=== PATIENT | female | born 1985 | race Caucasian/White ===

== ENCOUNTER 2016-11-16 11:04 | Inpatient (IN) | payer OTHER ==
[2016-11-16] MEDS ORDERED: SODIUM CHLORIDE 0.9% 1,000 ML IV ONE (14:49)
[2016-11-16 15:22] LABS: Appearance,Urine Clear (Clear); Bilirubin,Urine Negative (Negative); Glucose,Urine (UA) Negative (Negative); Ketones,Urine 2+ (Negative); Leukocyte Esterase,Urine Negative (Negative); Nitrite,Urine Negative (Negative); Protein,Urine Negative (Negative); Specific Gravity,Urine 1.005 (1.001-1.035); UA Billing (MACRO vs. MICRO) CHEM; Urobilinogen,Urine <2.0 mg/dL (<2.0)
[2016-11-16] MEDS: ONDANSETRON 4 MG/2 ML VIAL IVP PRN ×2 (15:37→22:23)
[2016-11-16] MEDS: DEXTROSE 5%-0.9% NACL 1,000 ML IV SCH (16:54)
--- NOTE | 2016-11-16 18:30 | US ---
EXAMINATION TYPE: US OB <= 14 wk fetus DATE OF EXAM: 11/16/2016 4:43 PM COMPARISON: NONE CLINICAL HISTORY: r/o molar r/o multiple . hyperemesis gravidarum EXAM PERFORMED: Transabdominal (TA) with couple of images TV for further determining of perry fe tus EXAM MEASUREMENTS: GESTATIONAL AGE / DATING Physician Established: (9 weeks/ 1 day) EDC: 06/20/2017 Dates by LMP: (9 weeks/1 day) EDC: 06/20/2017 Dates by First Scan: (today Dates by Current Scan for: (8 weeks/3 days) EDC: 06/25/2017 MATERNAL ANATOMY Uterus: 12.1 x 7.7 x 5.9cm Right Ovary: 2.7 x 2.5 x 1.5cm Left Ovary: 3.1 x 2.8 x 1.7cm Post CDS / Adnexa: wnl Presence of free fluid: no Presence of corpus luteal cyst: in left ovary Presence of subchorionic bleed: no GESTATION / SURVEY CRL: 1.9cm (8 weeks/3 days) Yolk Sac (normal less than 6mm): 0.3cm Heart Rate: 175 bpm Rhythm: Normal IUP: Viable IUP Date of LMP: 09/13/2016 Beta HcG (if available): [id number] per order in comment section TECHNOLOGIST IMPRESSION: Single, live, IUP, 8 weeks/3 days, EDC: 06/25/2017; HR 175bpm. IMPRESSION: Ultrasound gestational age is 8 weeks 3 days. There is no evidence of a complicating process.
[2016-11-16 18:51] LABS: Basophils # (A) 0.1 k/uL (0-0.2); Basophils % (A) 1 %; CH 30.2; CHCM 34.7; Eosinophils # (A) 0.1 k/uL (0-0.7); Eosinophils % (A) 1 %; HCT 36.3 % (34.0-46.0); HDW 3.05; HGB 12.4 gm/dL (11.4-16.0); Luc # (Auto) 0.08; Luc % (Auto) 1; Lymphocytes # (A) 1.8 k/uL (1.0-4.8); Lymphocytes % (A) 22 %; MCH 29.8 pg (25.0-35.0); MCHC 34.2 g/dL (31.0-37.0); MCV 87.3 fL (80.0-100.0); Mean Platelet Volume 7.4; Monocytes # (A) 0.2 k/uL (0-1.0); Monocytes % (A) 2 %; Neutrophils % (A) 73 %; RBC 4.16 m/uL (3.80-5.40); RDW 13.4 % (11.5-15.5); WBC 8.2 k/uL (3.8-10.6); WBC (Perox) 8.39
[2016-11-16] MEDS: diphenhydrAMINE 50 MG/ML 1 ML VIAL IVP PRN (19:15)
[2016-11-17] MEDS: DEXTROSE 5%-0.9% NACL 1,000 ML IV SCH ×6 (02:01→23:31)
[2016-11-17] MEDS: diphenhydrAMINE 50 MG/ML 1 ML VIAL IVP PRN ×4 (02:01→20:15)
[2016-11-17] MEDS: ONDANSETRON 4 MG/2 ML VIAL IVP PRN ×4 (05:03→23:30)
--- NOTE | 2016-11-17 08:14 | P.HPOB ---
History of Present Illness H&P Date: 11/17/16 Chief Complaint: 9 weeks intrauterine , intractable nausea and vomiting The patient is a 31-year-old 3 para [birth year]2002 who initially presented to [facility] approximately 36 hours ago with several days of intractable nausea and vomiting. She was admitted to the hospital for IV hydration and management of nausea. After approximately 12-24 hours, the patient continued to have significant nausea and was deemed inappropriate admission for [facility]. She was therefore transferred to this hospital as obstetrics is available and obstetrical ultrasound as well. She was admitted and underwent obstetric ultrasound which demonstrated a normal intrauterine at approximately 8-3/7 weeks by crown-rump length. There was no evidence of molar nor of multiple gestation. Of interest , the quantitative beta hCG at [facility] was well over 700,000. Upon admission to our hospital, she did have aggressive rehydration with a bolus of 1 L of fluid and continuous fluids at 125. She is receiving antibiotics on a regular basis but continues to have fairly significant nausea with no actual emesis. She is unable to take anything by mouth at this time. All other laboratory workup has been normal aside from significant ketones in the urine as would be expected with dehydration. Swab for influenza was negative at [facility]. Obstetrical history: 3 para 09/11/2002 with 1 term delivery and 135-36 week delivery of twins. Current statistics are listed above. She did have an early ultrasound through our office demonstrating intrauterine gestational sac with heart tones at 6 weeks. Ultrasound here confirmed the above findings with a single intrauterine in no apparent pathology. Laboratory workup for labs is pending at this time. Gynecologic history: Unremarkable with no history of any infections to include recent STDs. Review of Systems Review of systems is confined to history of present illness. Past Medical History Past Medical History: No Reported History History of Any Multi-Drug Resistant Organisms: None Reported Past Surgical History: Section, Cholecystectomy, Tonsillectomy Past Anesthesia/Blood Transfusion Reactions: No Reported Reaction Past Psychological History: Depression Additional Psychological History / Comment(s): was on Pristique for a few years , is not taking presently Smoking Status: Never smoker Past Alcohol Use History: None Reported Past Drug Use History: None Reported - Past Family History Mother Family Medical History: No Reported History Father Additional Family Medical History / Comment(s): heart problems but pt unsure what type Medications and Allergies Home Medications Medication Instructions Recorded Confirmed Type Pnv95/Ferrous Fumarate/FA 1 tab PO DAILY 11/16/16 11/16/16 History [ Vitamins Tablet] Allergies Allergy/AdvReac Type Severity Reaction Status Date / Time No Known Allergies Allergy Verified 11/16/16 15:17 Exam - Vital Signs Vital signs: Vital Signs Temp Pulse Pulse Resp BP BP Pulse Ox 11/17/16 07:55 102/63 11/17/16 07:15 98.3 F 69 18 98 11/17/16 02:00 98.8 F 62 18 90/47 97 11/16/16 19:06 98.1 F 58 L 21 89/66 100 11/16/16 15:00 97.2 F L 61 19 106/57 100 11/16/16 14:00 64 11/16/16 13:25 97.9 F 64 16 109/55 100 Intake and Output 11/16/16 11/17/16 11/17/16 22:59 06:59 14:59 Intake Total 120 Output Total 750 850 Balance -630 -850 Intake: Oral 120 Output: Urine 600 850 Emesis 150 Other: # Voids 1 In general, this is a well-developed, well-nourished white female in some discomfort with her nausea. Her heart has a regular rhythm and rate without murmur. Her lungs are clear to auscultation bilaterally in all langley. Her abdomen is nondistended, has normal active bowel sounds, is soft, nontender, and without any palpable masses, hepatosplenomegaly, or hernias. Her extremities are without any cyanosis, clubbing, or edema and are nontender to palpation bilaterally. Pelvic examination is deferred. Results Result Diagrams: 11/16/16 17:43 Abnormal Lab Results - Last 24 Hours (Table) 11/16/16 Range/Units 15:10 Urine Ketones 2+ H (Negative) Assessment and Plan (1) First trimester Status: Acute (2) Intractable nausea and vomiting Status: Acute Plan: The patient has been admitted for active management of the above problems. Normal intrauterine gestation has been established. I will redraw her beta hCG today as well as a complete metabolic panel, CBC, and thyroid studies. I will likely be in contact with maternal medicine for possible advice and consider GI consultation should we make no progress. She will continue to have aggressive rehydration at this time and antiemetics as necessary.
[2016-11-17] MEDS ORDERED: SODIUM CHLORIDE 0.9% 1,000 ML IV ONE (08:17)
[2016-11-17 09:44] LABS: CH 30.5; CHCM 35.5; HCT 32.3 % (34.0-46.0); HDW 3.05; HGB 11.5 gm/dL (11.4-16.0); MCH 30.7 pg (25.0-35.0); MCHC 35.7 g/dL (31.0-37.0); MCV 86.1 fL (80.0-100.0); Mean Platelet Volume 7.3; RBC 3.75 m/uL (3.80-5.40); RDW 13.4 % (11.5-15.5)
[2016-11-17 09:52] LABS: ALT 24 U/L (9-52); AST 13 U/L (14-36); Alkaline Phosphatase 30 U/L (38-126); Anion Gap 7 mmol/L; Blood Urea Nitrogen 2 mg/dL (7-17); Carbon Dioxide 22 mmol/L (22-30); Chloride 110 mmol/L (98-107); Glucose 79 mg/dL (74-99); Non-African American GFR(MDRD) >60 (>60 ml/min/1.73 sqM); Potassium 3.7 mmol/L (3.5-5.1); Sodium 139 mmol/L (137-145); Total Bilirubin 0.9 mg/dL (0.2-1.3); Total Protein 5.4 g/dL (6.3-8.2)
[2016-11-17 11:27] LABS: HCG,Quantitative Serum 77833.8 mIU/mL
[2016-11-18] MEDS: diphenhydrAMINE 50 MG/ML 1 ML VIAL IVP PRN ×4 (02:27→22:48)
[2016-11-18] MEDS: ONDANSETRON 4 MG/2 ML VIAL IVP PRN ×3 (06:33→20:01)
[2016-11-18] MEDS: DEXTROSE 5%-0.9% NACL 1,000 ML IV SCH ×3 (06:33→18:30)
[2016-11-18] MEDS ORDERED: ACETAMINOPHEN TAB 325 MG TAB PO PRN (08:56)
[2016-11-18] MEDS: ACETAMINOPHEN IV (For NPO) 1,000 MG in EMPTY BAG 1 BAG IVPB PRN ×2 (09:10→17:24)
--- NOTE | 2016-11-18 11:53 | P.PN ---
Subjective Principal diagnosis: 9+ weeks, dehydration, viral syndrome, nausea and vomiting The patient reports that she developed some vaginal bleeding this morning which has not increased and appears to have decreased somewhat. She is reporting some cramping. She still feels significantly nauseated and continues to have retching without production of vomitus. She has been unable to tolerate liquids. Objective - Vital Signs Vital signs: Vital Signs Temp 97.8 F 11/18/16 06:45 Pulse 68 11/18/16 06:45 Resp 16 11/18/16 06:45 BP 100/58 11/18/16 06:45 Pulse Ox 99 11/18/16 06:45 Intake & Output 11/17/16 11/18/16 11/18/16 18:59 06:59 18:59 Output Total 1875 1200 700 Balance -1875 -1200 -700 Weight 91.7 kg 91.8 kg Output: Urine 1775 1200 600 Emesis 100 100 Other: Voiding Method Toilet # Voids 1 # Bowel Movements 1 1 - Exam In general, this is a well-developed, well-nourished white female who appears ill and uncomfortable. Her abdomen is nondistended, soft, nontender, without any palpable masses, hepatosplenomegaly, or hernias. Her extremities are without any cyanosis, clubbing, or edema and are nontender to palpation bilaterally. - Labs CBC & Chem 7: 11/17/16 09:18 11/17/16 09:18 Assessment and Plan (1) First trimester Status: Acute (2) Intractable nausea and vomiting Status: Acute Plan: We will continue aggressive IV hydration. I will add Pepcid intravenously to decrease the possible gastritis from nausea and vomiting. I've discussed with her that our goal is to have her be able to tolerate liquids in order to be able to discharge her. Should she continue to have significant nausea and vomiting, there is a consideration for consultation with infectious disease. White count has been normal throughout her hospitalization. The bleeding at this time will be treated as threatened miscarriage. Should it continue, she may require repeat ultrasound for confirmation of viability.
[2016-11-18] MEDS: FAMOTIDINE 20 MG/2 ML VIAL IV SCH ×2 (13:18→21:23)
[2016-11-19] MEDS: DEXTROSE 5%-0.9% NACL 1,000 ML IV SCH ×2 (00:57→07:50)
[2016-11-19] MEDS: ONDANSETRON 4 MG/2 ML VIAL IVP PRN ×2 (03:43→09:40)
[2016-11-19] MEDS: ACETAMINOPHEN IV (For NPO) 1,000 MG in EMPTY BAG 1 BAG IVPB PRN (04:01)
[2016-11-19] MEDS: diphenhydrAMINE 50 MG/ML 1 ML VIAL IVP PRN (07:55)
[2016-11-19] MEDS: FAMOTIDINE 20 MG/2 ML VIAL IV SCH ×2 (09:02→21:54)
--- NOTE | 2016-11-19 11:51 | P.PN ---
Subjective Principal diagnosis: Vomiting and diarrhea first trimester , suspect fluid Patient complains of headache, 6 out of 10. Scant vaginal dark bleeding has resolved. Continued emesis, with diarrhea 10 times daily. Objective - Vital Signs Vital signs: Vital Signs Temp 97.8 F 11/19/16 08:22 Pulse 64 11/19/16 08:43 Resp 16 11/19/16 08:22 BP 117/77 11/19/16 08:43 Pulse Ox 100 11/19/16 08:22 Intake & Output 11/18/16 11/19/16 11/19/16 18:59 06:59 18:59 Output Total 1000 1350 730 Balance -1000 -1350 -730 Weight 91.8 kg Output: Urine 900 1350 730 Emesis 100 Other: Voiding Method Toilet Toilet Toilet # Voids 1 1 # Bowel Movements 1 1 # Emeses 1 - Constitutional General appearance: Present: average body habitus, cooperative, mild distress - EENT Eyes: Present: PERRLA ENT: Present: hearing grossly normal - Respiratory Respiratory: bilateral: CTA - Cardiovascular Rhythm: regular - Gastrointestinal General gastrointestinal: Present: normal bowel sounds - Integumentary Integumentary: Present: normal, normal turgor - Neurologic Neurologic: Present: CNII-XII intact - Musculoskeletal Musculoskeletal: Present: generalized weakness - Psychiatric Psychiatric: Present: A&O x's 3, appropriate affect, intact judgment & insight - Labs CBC & Chem 7: 11/17/16 09:18 11/17/16 09:18 Assessment and Plan Plan: Phenergan 75 mg IM. Will add multivitamin to the IV bag daily. Culture stool. Continue supportive care. Time with Patient: Less than 30
[2016-11-19] MEDS ORDERED: SODIUM CHLORIDE 0.9% 1,000 ML with POTASSIUM CHLORIDE 20 MEQ, MVI, ADULT NO.4 WITH VIT ... IV SCH ×5 (12:00)
[2016-11-19] MEDS: PROMETHAZINE INJ 25 MG/ML 1 ML VIAL IM PRN ×2 (13:48→21:37)
[2016-11-19] MEDS: 1: MVI, ADULT NO.4 WITH VIT K 10 ML, THIAMINE 100 MG, FOLIC ACID 1 MG in SODIUM CHLORIDE IV SCH ×2 (13:48→23:48)
[2016-11-20] MEDS: 1: MVI, ADULT NO.4 WITH VIT K 10 ML, THIAMINE 100 MG, FOLIC ACID 1 MG in SODIUM CHLORIDE IV SCH ×4 (08:04→22:59)
[2016-11-20] MEDS: PROMETHAZINE INJ 25 MG/ML 1 ML VIAL IM PRN (08:49)
--- NOTE | 2016-11-20 09:18 | P.PN ---
Subjective Patient complains of headache, 6 out of 10. Scant vaginal dark bleeding has resolved. Continued emesis, with diarrhea 10 times daily. Objective - Vital Signs Vital signs: Vital Signs Temp 98.1 F 11/20/16 07:00 Pulse 67 11/20/16 07:00 Resp 14 11/20/16 07:00 BP 104/56 11/20/16 07:00 Pulse Ox 100 11/19/16 21:26 Intake & Output 11/19/16 11/20/16 11/20/16 17:59 06:59 18:59 Intake Total Output Total Balance Intake: Intake, IV Titration Amount Mvi, Adult No.4 with Vit K 10 ml Thiamine 100 mg Folic Acid 1 mg In Sodium Chloride 0.9% 1,000 ml @ 100 mls/hr IV .BY DURATION [facility] Rx#: [id number] Oral Output: Urine Other: Voiding Method # Voids # Bowel Movements # Emeses - Exam Doppler heart tones at the bedside 155. - Constitutional General appearance: Present: average body habitus, cooperative - EENT Eyes: Present: PERRLA ENT: Present: hearing grossly normal - Neck Neck: Present: normal ROM Thyroid: bilateral: normal size - Respiratory Respiratory: bilateral: CTA - Cardiovascular Rhythm: regular - Gastrointestinal General gastrointestinal: Present: normal bowel sounds - Neurologic Neurologic: Present: CNII-XII intact - Musculoskeletal Musculoskeletal: Present: generalized weakness - Labs CBC & Chem 7: 11/17/16 09:18 11/17/16 09:18 Labs: Microbiology - Last 24 Hours (Table) 11/19/16 14:13 Stool Culture - Preliminary Stool Assessment and Plan Plan: Continue supportive care today. Advance to dry food diet. Patient may shower. Time with Patient: Less than 30
[2016-11-20] MEDS: FAMOTIDINE 20 MG/2 ML VIAL IV SCH ×2 (11:24→23:00)
[2016-11-20] MEDS: ONDANSETRON 4 MG/2 ML VIAL IVP PRN (20:56)
[2016-11-20] MEDS: ACETAMINOPHEN IV (For NPO) 1,000 MG in EMPTY BAG 1 BAG IVPB PRN (20:56)
[2016-11-21] MEDS: 1: MVI, ADULT NO.4 WITH VIT K 10 ML, THIAMINE 100 MG, FOLIC ACID 1 MG in SODIUM CHLORIDE IV SCH ×3 (06:33→18:05)
[2016-11-21] MEDS: PROMETHAZINE INJ 25 MG/ML 1 ML VIAL IM PRN (08:11)
[2016-11-21] MEDS: FAMOTIDINE 20 MG/2 ML VIAL IV SCH ×2 (08:36→20:53)
--- NOTE | 2016-11-21 08:53 | P.PN ---
Subjective Principal diagnosis: 9+ weeks, dehydration, viral syndrome, nausea and vomiting The patient continues to report significant nausea and vomiting. She reports that she feels significantly week. She is able to get up and use the restroom on her own. She has not tolerated liquids to this point. Objective - Vital Signs Vital signs: Vital Signs Temp 99.0 F 11/21/16 08:00 Pulse 98 11/21/16 08:00 Resp 18 11/21/16 08:00 BP 116/70 11/21/16 08:00 Pulse Ox 100 11/19/16 21:26 Intake & Output 11/20/16 11/21/16 11/21/16 18:59 06:59 18:59 Intake Total 2011.2 1100 Output Total 1100 1350 400 Balance 911.2 -250 -400 Intake: IV 1100 ACETAMINOPHEN IV (For NPO 100 ) 1,000 mg In Empty Bag 1 bag @ 400 mls/hr IVPB Q6HR PRN Rx#:[id number] Dextrose 5%-0.9% NaCl 1, 1000 000 ml @ 150 mls/hr IV . BY DURATION [facility] Rx#: [id number] Intake, IV Titration 2010.2 Amount Dextrose 5%-0.9% NaCl 1, 1000 000 ml @ 150 mls/hr IV . BY DURATION [facility] Rx#: [id number] Mvi, Adult No.4 with Vit 1011.2 K 10 ml Thiamine 100 mg Folic Acid 1 mg In Sodium Chloride 0.9% 1,000 ml @ 100 mls/hr IV .BY DURATION [facility] Rx#: [id number] Oral 0 Output: Urine 1100 1350 400 Stool 0 Other: # Voids 1 # Bowel Movements 1 1 - Exam In general, this is a well-developed, well-nourished white female remains in some discomfort secondary to her illness. Her heart has a regular rhythm and rate without murmur. Her lungs are clear to auscultation bilaterally in all langley. Her abdomen is nondistended, has normal active bowel sounds, is soft, nontender, and without any palpable masses. Her extremities without any cyanosis, clubbing, or edema and are nontender to palpation bilaterally. Pelvic examination is deferred - Labs CBC & Chem 7: 11/17/16 09:18 11/17/16 09:18 Assessment and Plan (1) First trimester Status: Acute (2) Intractable nausea and vomiting Status: Acute Plan: We will add daily weight. There is some consideration for attempting to add parenteral nutrition if she is unable to tolerate the orals within the next 24- 48 hours. Continue supportive care.
[2016-11-21] MEDS: ONDANSETRON 4 MG/2 ML VIAL IVP PRN ×2 (10:31→18:52)
[2016-11-21 14:48] LABS: Basophils % (A) 0 %; CH 30.4; CHCM 34.9; Eosinophils # (A) 0.1 k/uL (0-0.7); Eosinophils % (A) 2 %; HCT 34.7 % (34.0-46.0); HDW 3.11; HGB 11.9 gm/dL (11.4-16.0); Luc # (Auto) 0.13; Luc % (Auto) 2; Lymphocytes % (A) 32 %; MCH 30.2 pg (25.0-35.0); MCHC 34.4 g/dL (31.0-37.0); MCV 87.8 fL (80.0-100.0); Mean Platelet Volume 7.3; Monocytes # (A) 0.2 k/uL (0-1.0); Monocytes % (A) 3 %; Neutrophils # (A) 3.8 k/uL (1.3-7.7); Neutrophils % (A) 61 %; RBC 3.95 m/uL (3.80-5.40); RDW 13.8 % (11.5-15.5); WBC 6.2 k/uL (3.8-10.6); WBC (Perox) 6.24
[2016-11-21 14:57] LABS: ALT 37 U/L (9-52); AST 32 U/L (14-36); Alkaline Phosphatase 34 U/L (38-126); Amylase <30 U/L (30-110); Anion Gap 9 mmol/L; Blood Urea Nitrogen <2 mg/dL (7-17); Calcium 8.6 mg/dL (8.4-10.2); Carbon Dioxide 22 mmol/L (22-30); Chloride 107 mmol/L (98-107); Glucose 78 mg/dL (74-99); Non-African American GFR(MDRD) >60 (>60 ml/min/1.73 sqM); Potassium 3.5 mmol/L (3.5-5.1); Sodium 138 mmol/L (137-145); Total Bilirubin 1.2 mg/dL (0.2-1.3); Total Protein 5.9 g/dL (6.3-8.2)
[2016-11-21] MEDS: ACETAMINOPHEN IV (For NPO) 1,000 MG in EMPTY BAG 1 BAG IVPB PRN (18:17)
[2016-11-22] MEDS: 1: MVI, ADULT NO.4 WITH VIT K 10 ML, THIAMINE 100 MG, FOLIC ACID 1 MG in SODIUM CHLORIDE IV SCH ×3 (01:42→20:11)
[2016-11-22] MEDS: diphenhydrAMINE 50 MG/ML 1 ML VIAL IVP PRN ×3 (06:31→21:37)
[2016-11-22] MEDS: FAMOTIDINE 20 MG/2 ML VIAL IV SCH ×2 (09:23→21:38)
[2016-11-22 09:59] VITALS: BMI 34.2
--- NOTE | 2016-11-22 10:47 | P.PN ---
Subjective Principal diagnosis: 9+ weeks, dehydration, viral syndrome, nausea and vomiting The patient continues to be unable to tolerate anything by mouth. She does report feeling a little improvement from yesterday but continues to have both nausea and the reported diarrhea. The vaginal bleeding has the decreased to only dark blood when wiping at the toilet. Objective - Vital Signs Vital signs: Vital Signs Temp 97.6 F 11/22/16 07:40 Pulse 62 11/22/16 07:40 Resp 16 11/22/16 07:40 BP 102/59 11/22/16 07:40 Pulse Ox 98 11/22/16 00:00 Intake & Output 11/21/16 11/22/16 11/22/16 18:59 06:59 18:59 Intake Total 2011.2 600 Output Total 1600 600 800 Balance 411.2 0 -800 Weight 90.945 kg 90.378 kg Intake: Intake, IV Titration 2010.2 Amount Dextrose 5%-0.9% NaCl 1, 1000 000 ml @ 150 mls/hr IV . BY DURATION [facility] Rx#: [id number] Mvi, Adult No.4 with Vit 1011.2 K 10 ml Thiamine 100 mg Folic Acid 1 mg In Sodium Chloride 0.9% 1,000 ml @ 100 mls/hr IV .BY DURATION [facility] Rx#: [id number] Oral 600 Output: Urine 1600 600 800 Stool 0 Other: Voiding Method Toilet # Voids 1 1 1 # Bowel Movements 1 - Exam In general, this is a well-developed, mildly obese white female who appears ill though slightly improved from yesterday. Her heart has a regular rhythm and rate without murmur. Her lungs are clear to auscultation bilaterally in all langley. Her abdomen is nondistended, has normal bowel sounds is soft, nontender , and without palpable masses, hepatosplenomegaly, hernias. Her extremities are without any cyanosis, clubbing, or edema and are nontender to palpation bilaterally. Pelvic examination is deferred. - Labs CBC & Chem 7: 11/21/16 14:07 11/21/16 14:07 Labs: Abnormal Lab Results - Last 24 Hours (Table) 11/21/16 Range/Units 14:07 BUN <2 L (7-17) mg/dL Alkaline Phosphatase 34 L (38-126) U/L Total Protein 5.9 L (6.3-8.2) g/dL Albumin 3.2 L (3.5-5.0) g/dL Amylase <30 L (30-110) U/L Microbiology - Last 24 Hours (Table) 11/19/16 14:13 Stool Culture - Preliminary Stool Assessment and Plan (1) First trimester Status: Acute (2) Intractable nausea and vomiting Status: Acute Plan: At this point, I still suspect a superimposed viral illness over early nausea and vomiting. Culture for [place] virus was negative and she has not had antibiotics to make Clostridium difficile a more viable alternative. She has now been at least 1 week without any significant oral nutrition. Consideration will be made for options for peripheral feeding and nutrition. I have consulted gastroenterology for their opinions regarding the ongoing nausea and vomiting as well as diarrhea. Otherwise we will continue supportive care at this time and await for her ability to tolerate liquids. Nutrition consultation is a consideration but she is unable to take anything by mouth at this time. All laboratories were rechecked yesterday and were normal aside from the expected nutritional deficiencies.
[2016-11-22] MEDS: ONDANSETRON 4 MG/2 ML VIAL IVP PRN (17:01)
[2016-11-23] MEDS: 1: MVI, ADULT NO.4 WITH VIT K 10 ML, THIAMINE 100 MG, FOLIC ACID 1 MG in SODIUM CHLORIDE IV SCH ×3 (02:38→21:00)
--- NOTE | 2016-11-23 08:44 | P.PN ---
Subjective Principal diagnosis: 9+ weeks, dehydration, viral syndrome, nausea and vomiting The patient reports feeling somewhat better this morning. She still does have some nausea and this continues to report loose stools. She has not yet tolerated anything of significance by mouth and she was able to tolerate some sure bit and pretzels yesterday. Objective - Vital Signs Vital signs: Vital Signs Temp 98.8 F 11/23/16 07:37 Pulse 55 L 11/23/16 07:37 Resp 18 11/23/16 07:37 BP 89/55 11/23/16 07:37 Pulse Ox 99 11/22/16 23:48 Intake & Output 11/22/16 11/23/16 11/23/16 18:59 06:59 18:59 Intake Total 1000 900 Output Total 2400 500 500 Balance -1400 400 -500 Weight 90.378 kg Intake: IV 900 Dextrose 5%-0.9% NaCl 1, 900 000 ml @ 150 mls/hr IV . BY DURATION [facility] Rx#: [id number] Intake, IV Titration 1000 Amount Dextrose 5%-0.9% NaCl 1, 1000 000 ml @ 150 mls/hr IV . BY DURATION [facility] Rx#: [id number] Output: Urine 2300 500 500 Emesis 100 Other: # Voids 1 # Bowel Movements 1 1 - Exam In general, this is a well-developed well-nourished white female who continues to look somewhat ill though improved from yesterday. Her heart has regular rhythm and rate without murmur. Her lungs are clear to auscultation bilaterally in all langley. Her abdomen is nondistended, has normal active bowel sounds, soft, nontender, without any palpable masses. Her extremities are without any cyanosis, clubbing, or edema and nontender to palpation bilaterally. Pelvic examination is deferred. - Labs CBC & Chem 7: 11/21/16 14:07 11/21/16 14:07 Labs: Microbiology - Last 24 Hours (Table) 11/19/16 14:13 Stool Culture - Final Stool Assessment and Plan (1) First trimester Status: Acute (2) Intractable nausea and vomiting Status: Acute Plan: I have strongly encouraged the patient to try liquids today by mouth. GI consultation is pending at this time as is culture for C. diff. She cannot be discharged until she is able to at least tolerate oral liquids and is going to be in need of some actual nutrition in the very near future. Should her situation not improve, she may require parenteral nutritional options.
[2016-11-23] MEDS: FAMOTIDINE 20 MG/2 ML VIAL IV SCH ×2 (09:13→21:21)
--- NOTE | 2016-11-23 12:22 | P.CONS ---
History of Present Illness - Reason for Consult Consult date: 11/23/16 Nausea vomiting diarrhea Requesting physician: Roverto Gomez - History of Present Illness 31-year-old female patient of Dr. Gomez with a past medical history of depression and cholecystectomy. 9 weeks intrauterine admitted week ago with intractable nausea vomiting and diarrhea. Patient's symptoms of nausea vomiting started about 2 weeks ago then 4 days later developed several bouts of nonbloody diarrhea with intermittent lower abdominal cramping. Originally evaluated at [facility] one week ago transferred to [place] for further evaluation and care. She received aggressive rehydration with fluid boluses. Presently still reporting upwards to 10-15 small bowel movements daily. Oral intake is poor. Vomiting seems to improve but nausea is still persistent. No history of colitis, IBS, inflammatory bowel disease. No recent travels sick contacts or changes in diet, medications. White count 6.2. Hemoglobin 11.9. BUN less than 2. Creatinine 0.5. C. difficile norovirus negative. Colonoscopy several years ago she's unsure why it was performed but thinks the exam was normal. Review of Systems Constitutional: Denies fever, chills, sweats, weight gain, or loss. HEENT: Negative for migraines, blurred vision or loss, earaches, drainage, tinnitus, oral mucosal lesions, dysphagia, or odynophagia. CARDIAC: Negative for chest pain, arrhythmias, or palpitation. RESPIRATORY: Negative for shortness of breath, hemoptysis, cough, or sputum production. GI: See HPI for pertinent findings. : Negative for hematuria, urgency, frequency, polyuria, or dysuria. GYNc: 9 weeks intrauterine . MUSCULOSKELETAL: Negative for muscle aches, swelling, arthritis, and arthralgias. NEUROLOGIC: Negative for stroke or TIA. ENDOCRINE: Negative for thyroid problems. SKIN: Negative for rash or itching. PSYCHIATRIC: History of depression. All systems: negative (See HPI) Past Medical History Past Medical History: No Reported History History of Any Multi-Drug Resistant Organisms: None Reported Past Surgical History: Section, Cholecystectomy, Tonsillectomy Past Anesthesia/Blood Transfusion Reactions: No Reported Reaction Past Psychological History: Depression Additional Psychological History / Comment(s): was on Pristique for a few years , is not taking presently Smoking Status: Never smoker Past Alcohol Use History: None Reported Past Drug Use History: None Reported - Past Family History Mother Family Medical History: No Reported History Father Additional Family Medical History / Comment(s): heart problems but pt unsure what type Medications and Allergies Home Medications Medication Instructions Recorded Confirmed Type Pnv95/Ferrous Fumarate/FA 1 tab PO DAILY 11/16/16 11/16/16 History [ Vitamins Tablet] Allergies Allergy/AdvReac Type Severity Reaction Status Date / Time No Known Allergies Allergy Verified 11/16/16 15:17 Physical Exam Vitals: Vital Signs Temp Pulse Pulse Pulse Resp BP BP 11/23/16 07:37 98.8 F 55 L 18 89/55 11/22/16 23:48 98.5 F 54 L 16 101/55 11/22/16 15:15 98.7 F 61 98 16 109/48 Pulse Ox 11/23/16 07:37 11/22/16 23:48 99 11/22/16 15:15 Intake and Output 11/22/16 11/23/16 11/23/16 22:59 06:59 14:59 Intake Total 1000 900 Output Total 950 500 500 Balance 50 400 -500 Intake: IV 900 Dextrose 5%-0.9% NaCl 1, 900 000 ml @ 150 mls/hr IV . BY DURATION [facility] Rx#: [id number] Intake, IV Titration 1000 Amount Dextrose 5%-0.9% NaCl 1, 1000 000 ml @ 150 mls/hr IV . BY DURATION [facility] Rx#: [id number] Output: Urine 900 500 500 Emesis 50 Other: # Voids 1 # Bowel Movements 1 1 Weight 90.322 kg Patient Weight 11/24/16 06:59 Weight 90.322 kg General appearance: The patient is alert, oriented, in no acute distress. HET: Head is normocephalic and atraumatic. Pupils are equal and reactive. Oropharynx is clear without lesions. Neck: Supple without lymphadenopathy. Trachea midline. Heart: S1 S2. Regular rate and rhythm. Lungs: No crackles or wheezes are heard. Abdomen: Soft, very mild tenderness bilateral lower quadrants equal, nondistended with bowel sounds. No peritoneal signs. No palpable organomegaly or masses. Extremities: Normal skin color and turgor. No cyanosis, rash, ulceration, clubbing, or edema. Radial and pedal pulses are 2/4 bilaterally. Neurological: No focal deficits. Strength and sensation are grossly intact. Results CBC & Chem 7: 11/21/16 14:07 11/21/16 14:07 Labs: Microbiology - Last 24 Hours (Table) 11/19/16 14:13 Stool Culture - Final Stool Assessment and Plan (1) Acute diarrhea Narrative/Plan: Suspect gastroenteritis possible self-limiting infectious colitis possible inflammatory Status: Acute (2) Intractable nausea and vomiting Status: Acute (3) First trimester Status: Acute Plan: 1. Will order additional stool studies including stool culture, Giardia antigen , fecal leukocytes and Hemoccult. 2. Dr. Mosley we'll reevaluate and decide if the use of antidiarrheals, cholestyramine for diarrhea would be beneficial; these medications are risk factor C. 3. For now continue with Pepcid, Benadryl and Zofran as needed for symptomatic care. Patient and nursing staff were advised to monitor and record frequency of bowel movements for further review. 4. Will follow with you. Thank you for this kind referral and the opportunity to participate in the care of your patient. This consultation was discussed with Dr. Mosley. The impression and plan of care have been directed as dictated.
[2016-11-23] MEDS: ONDANSETRON 4 MG/2 ML VIAL IVP PRN (12:48)
[2016-11-23] MEDS: diphenhydrAMINE 50 MG/ML 1 ML VIAL IVP PRN (16:51)
--- NOTE | 2016-11-24 08:57 | P.PN ---
Subjective Principal diagnosis: 9+ weeks, dehydration, viral syndrome, nausea and vomiting The patient reports feeling significantly better this morning. She has been able to take some soup and the other intake by mouth. She denies any headache, pain, or any other specific physical concerns. Her nausea has been improved though she still does feel some nausea. She reports that she has had diarrhea but nursing staff as witnessed none over the last 12-24 hours. Objective - Vital Signs Vital signs: Vital Signs Temp 98.6 F 11/24/16 00:00 Pulse 81 11/24/16 00:00 Resp 15 11/24/16 00:00 BP 98/61 11/24/16 00:00 Pulse Ox 99 11/22/16 23:48 Intake & Output 11/23/16 11/24/16 11/24/16 18:59 06:59 18:59 Intake Total 2261.2 700 Output Total 1850 590 Balance 411.2 110 Weight 90.322 kg Intake: Intake, IV Titration 2010.2 700 Amount Dextrose 5%-0.9% NaCl 1, 100 000 ml @ 50 mls/hr IV .BY DURATION YOKO Rx#: [id number] Mvi, Adult No.4 with Vit 2010.2 600 K 10 ml Thiamine 100 mg Folic Acid 1 mg In Sodium Chloride 0.9% 1,000 ml @ 100 mls/hr IV .BY DURATION YOKO Rx#: [id number] Oral 250 Output: Urine 1850 550 Stool 0 Emesis 40 Other: # Bowel Movements 4 - Exam In general, this is a well-developed, well-nourished white female in less discomfort. Her heart has a regular rhythm and rate without murmur. Her lungs are clear to auscultation bilaterally in all langley. Her abdomen is nondistended, has normal active bowel sounds, is soft, nontender, and without any palpable masses. heart tones are dopplered at approximately 150 bpm. Her extremities without any cyanosis clubbing or edema and are nontender to palpation bilaterally. Pelvic exam is deferred. - Labs CBC & Chem 7: 11/21/16 14:07 11/21/16 14:07 Assessment and Plan (1) First trimester Status: Acute (2) Intractable nausea and vomiting Status: Acute Plan: I and planning to saline lock her IV and advance her diet to regular as tolerated. I have again significantly encouraged her to take liquids and anything else that the peels to her by mouth. I will add Ensure shakes for protein supplementation as the patient can tolerate. The goal today is to have her taking enough by mouth to discharge her to home later today. GI consultation is appreciated in some of the stool cultures are pending.
[2016-11-24 08:59] VITALS: RESP 16
--- NOTE | 2016-11-24 10:55 | P.PN ---
Subjective Principal diagnosis: gastroenteritis 31-year-old female 9 weeks admitted with intractable nausea vomiting diarrhea suspect gastroenteritis. Diarrhea improving; 5 very small unmeasurable bowel movements 24 hours. Tolerating diet with no emesis and minimal nausea. Afebrile. Minimal abdominal discomfort. Objective - Vital Signs Vital signs: Vital Signs Temp 97.9 F 11/24/16 08:00 Pulse 64 11/24/16 08:00 Resp 16 11/24/16 08:00 BP 96/54 11/24/16 08:00 Pulse Ox 99 11/22/16 23:48 Intake & Output 11/23/16 11/24/16 11/24/16 18:59 06:59 18:59 Intake Total 2261.2 700 Output Total 1850 590 Balance 411.2 110 Weight 90.322 kg Intake: Intake, IV Titration 2010.2 700 Amount Dextrose 5%-0.9% NaCl 1, 100 000 ml @ 50 mls/hr IV .BY DURATION YOKO Rx#: [id number] Mvi, Adult No.4 with Vit 2010.2 600 K 10 ml Thiamine 100 mg Folic Acid 1 mg In Sodium Chloride 0.9% 1,000 ml @ 100 mls/hr IV .BY DURATION YOKO Rx#: [id number] Oral 250 Output: Urine 1850 550 Stool 0 Emesis 40 Other: # Bowel Movements 4 - Exam General appearance: The patient is alert, oriented, in no acute distress. HET: Head is normocephalic and atraumatic. Pupils are equal and reactive. Oropharynx is clear without lesions. Neck: Supple without lymphadenopathy. Trachea midline. Heart: S1 S2. Regular rate and rhythm. Lungs: No crackles or wheezes are heard. Abdomen: Soft, nontender, nondistended with bowel sounds. No peritoneal signs. No palpable organomegaly or masses. Extremities: Normal skin color and turgor. No cyanosis, rash, ulceration, clubbing, or edema. Radial and pedal pulses are 2/4 bilaterally. Neurological: No focal deficits. Strength and sensation are grossly intact. - Labs CBC & Chem 7: 11/21/16 14:07 11/21/16 14:07 Assessment and Plan (1) Acute diarrhea Narrative/Plan: Suspect gastroenteritis possible self-limiting infectious colitis possible inflammatory Status: Acute (2) Intractable nausea and vomiting Status: Acute (3) First trimester Status: Acute Plan: 1. Dr. Mosley evaluated patient at bedside this morning and recommends continued supportive measures with antinausea medications and slow advancement of diet. First trimester limits availability of antidiarrheals. Overall symptoms seem to be improving. Discharge per [employer]. Advised probiotics such as yogurt with meals daily. No further workup at this time. If patient should have quantifiable looser bowel movement this morning nursing was instructed to obtain stool culture fecal leukocytes and Giardia antigen. Follow up with [facility] [facility] is advised and with GI office when necessary. Assessment and plan a care discussed with Dr. Mosley
[2016-11-24 16:10] VITALS: BP 89/58; PULSE 60; TEMP 97.5
[2016-11-24] MEDS: 1: MVI, ADULT NO.4 WITH VIT K 10 ML, THIAMINE 100 MG, FOLIC ACID 1 MG in SODIUM CHLORIDE IV SCH ×6 (17:29)
[2016-11-24] MEDS: FAMOTIDINE 20 MG/2 ML VIAL IV SCH (17:30)
--- NOTE | 2016-11-25 11:06 | P.DS ---
Providers Date of admission: 11/18/16 12:56 Expected date of discharge: 11/24/16 Attending physician: Roverto Gomez Primary care physician: Juan José Alexandre - Discharge Diagnosis(es) (1) First trimester Status: Acute (2) Intractable nausea and vomiting Status: Acute Hospital Course: The patient is a 31-year-old 3 para 1103 initially admitted at [facility] for acute dehydration and hyperemesis presumably of early . She is approximately 9+ weeks gestation at admission. After 24 hours at [facility], the patient and condition did not improve. She continued to have significant nausea and vomiting and was unable to take anything by mouth. She remained relatively dehydrated as she had not been aggressively rehydrated. Arrangements were made to transfer her from [facility] where aggressive rehydration was undertaken. All labs drawn during the entire were negative for any signs or symptoms of infection. She did have some decreased protein and anything by mouth. Mom she continued to have supportive care over the course of approximately 6-7 days with minimal improvement over that time. As her labs remained stable throughout, the presumption was made that she had a superimposed viral syndrome on top of early nausea and vomiting. At approximately 1 week of admission, GI consultation was sought as there was still no significant improvement. Number of stool cultures were ordered all of which have now returned negative. She did begin to feel better on approximately hospital day #8. She reported that her nausea was significantly improved. She'll monitor had any fever and the diarrhea which she had reportedly developed during her admission had resolved as well. She was able to take liquids and then solids and was therefore deemed stable for discharge. She, during the course of her admission also developed some vaginal bleeding which resolved while in the hospital. Ultrasound had demonstrated a normal intrauterine early in the admission and subsequent Doppler heart tones were obtained on several occasions during the admission demonstrating of viability. She was discharged home on 2016 to follow-up in the office as previously scheduled. She was to call for any significant increase in nausea and vomiting, diarrhea, vaginal bleeding, or anything else that concerned her. She was encouraged to be aggressive with fluid hydration and to take solids as she was able. She understood her instructions and agrees to follow up as planned. Discharge medications included only continue vitamins when she is able to take them and any [id number] analgesic pain medications such as Tylenol that might be deemed necessary. Procedures: #1. Aggressive IV hydration #2. Obstetrical ultrasound #3. Anti-emetics therapy #4. GI consultation Patient Condition at Discharge: Stable Plan - Discharge Summary Discharge Medication List Pnv95/Ferrous Fumarate/FA [ Vitamins Tablet] 1 tab PO DAILY 11/16/16 [ History] Follow up Appointment(s)/Referral(s): Roverto Gomez MD [STAFF PHYSICIAN] - 2 Weeks Patient Instructions/Handouts: Hyperemesis Gravidarum (DC), Dehydration (DC), Laparoscopic Hysterectomy (DC), Laparoscopic Hysterectomy (GEN) Discharge Disposition: HOME SELF-CARE
== END 2016-11-24 19:30 | disposition home or self-care (01) | DRG 781 ==
LOC: 6PED 13:39 → OBSVTOIN 11-18 12:56 → 4FBP 11-19 19:04
PROVIDERS: ADMIT Obstetrics & Gynecology; ATTEND Obstetrics & Gynecology
DX: O21.1 Hyperemesis gravidarum with metabolic disturbance (principal); O98.511 Other viral diseases complicating pregnancy, first trimester; Z3A.09 9 weeks gestation of pregnancy; E86.0 Dehydration; K52.9 Noninfective gastroenteritis and colitis, unspecified; B34.9 Viral infection, unspecified
CPT/HCPCS: 76801; 80053; 81003; 82150; 82272; 83690; 84443; 84702; 85025; 85027; 87045; 87046; 87324; 87329; 87798; 89055; 96361; 96374; 96375; 96376

== ENCOUNTER 2017-01-29 12:17 | Inpatient (IN) | payer OTHER ==
[2017-01-29] MEDS ORDERED: CALCIUM CARBONATE 500 MG CHEWABLE PO PRN (13:41)
[2017-01-29] MEDS ORDERED: LACTATED RINGERS 1,000 ML IV SCH (13:45)
[2017-01-29] MEDS ORDERED: LACTATED RINGERS 1,000 ML IV ONE (13:45)
[2017-01-29 14:29] LABS: Basophils % (A) 0 %; CH 30.7; CHCM 34.5; Eosinophils # (A) 0.1 k/uL (0-0.7); Eosinophils % (A) 1 %; HCT 35.4 % (34.0-46.0); HDW 3.31; HGB 11.9 gm/dL (11.4-16.0); Luc # (Auto) 0.07; Luc % (Auto) 1; Lymphocytes # (A) 1.6 k/uL (1.0-4.8); Lymphocytes % (A) 17 %; MCH 30.2 pg (25.0-35.0); MCHC 33.7 g/dL (31.0-37.0); MCV 89.5 fL (80.0-100.0); Mean Platelet Volume 7.1; Monocytes # (A) 0.3 k/uL (0-1.0); Monocytes % (A) 3 %; Neutrophils # (A) 7.2 k/uL (1.3-7.7); Neutrophils % (A) 77 %; RBC 3.96 m/uL (3.80-5.40); RDW 15.4 % (11.5-15.5); WBC 9.3 k/uL (3.8-10.6); WBC (Perox) 9.54
[2017-01-29] MEDS: LACTATED RINGERS 1,000 ML IV SCH (14:45)
--- NOTE | 2017-01-29 15:04 | P.HPOB ---
History of Present Illness H&P Date: 01/29/17 Chief Complaint: Leakage of fluid This is a 31-year-old 3 para 1103 with an estimated due date of 2016 based on LMP consistent with first trimester ultrasound, making her 19 weeks and 5 days. She had a copious amount of clear fluid from the vagina at approximately 11:30 AM. She is complaining of mild abdominal cramping. Her has been somewhat complicated thus far. She had severe hyperemesis gravidarum requiring a week long hospitalization in the first trimester. She then had a large subchorionic bleed measuring 8 cm. She reports ultrasound performed in the office setting on 01/24/2017 that did show resolution of the subchorionic bleed. She last had vaginal bleeding 10-14 days ago. Evaluation in labor and delivery triage confirms positive rupture of membranes with positive amnio sure test and pooling. Bedside ultrasound reveals in the breech presentation. Cervix measures 3.68 cm transabdominally. Amniotic fluid index 7.05 cm. No evidence of subchorionic bleed noted. Obstetric history: She is a 3 para 1103 with a history of a term vaginal delivery in 2005 and a 36 week primary section in 2011 for Twins. She is known maternal blood type Rh-. Review of Systems Constitutional: Denies chills, Denies fever Cardiovascular: Denies chest pain, Denies high blood pressure, Denies irregular heart beat Respiratory: Denies congestion, Denies cough Gastrointestinal: Denies abdominal pain, Denies diarrhea, Denies nausea, Denies vomiting Genitourinary: Denies abnormal vaginal bleeding, Denies dysuria, Denies hematuria Musculoskeletal: Reports low back pain Neurological: Denies headaches Past Medical History Past Medical History: No Reported History History of Any Multi-Drug Resistant Organisms: None Reported Past Surgical History: Section, Cholecystectomy, Tonsillectomy Past Anesthesia/Blood Transfusion Reactions: No Reported Reaction Past Psychological History: Depression Additional Psychological History / Comment(s): was on Pristique for a few years , is not taking presently Smoking Status: Never smoker Past Alcohol Use History: None Reported Past Drug Use History: None Reported - Past Family History Mother Family Medical History: No Reported History Father Additional Family Medical History / Comment(s): heart problems but pt unsure what type Medications and Allergies Home Medications Medication Instructions Recorded Confirmed Type Pnv95/Ferrous Fumarate/FA 1 tab PO DAILY 11/16/16 11/16/16 History [ Vitamins Tablet] Allergies Allergy/AdvReac Type Severity Reaction Status Date / Time No Known Allergies Allergy Verified 11/16/16 15:17 Exam This is a anxious appearing female in no obvious distress. HEENT exam is unremarkable. Her breathing is unlabored and her heart is of regular rate and rhythm. The abdomen is gravid with a fundal height at approximately the level of the umbilicus. The fundus is nontender. She has trace lower extremity edema. On sterile speculum examination the cervix could not be visualized and there is pooling of amniotic fluid noted. Sterile cervical exam therefore was performed and the cervix is fingertip dilated and approximately 50 % effaced. There is no presenting part. There are positive heart tones by external monitoring. Results Result Diagrams: 01/29/17 14:05 US - abdomen: report reviewed, image reviewed Assessment and Plan (1) premature rupture of membranes Status: Acute (2) 19 weeks gestation of Status: Acute (3) Breech presentation Status: Acute (4) Rh negative, maternal Status: Acute Plan: This is a 31-year-old 3 para 1103 woman at 19-5/7 weeks gestation who presents with previable, , premature rupture of membranes. By ultrasound the is in the breech presentation. I Had a long discussion with the patient and her family members regarding the situation. She has no signs of active labor or infection at this time. She will be admitted for observation however should she remain stable she can likely be discharged with outpatient management. We discussed that should she develop signs of active labor that there would be no intervention at this gestational age. She 'll be monitored for signs of infection and antibiotics initiated as indicated. Should she progress to 22+ weeks, discussion of administration of steroids and evaluation at a tertiary care facility will be made. All their questions were answered to the best of my ability at this time. Time with Patient: Greater than 30
--- NOTE | 2017-01-29 15:49 | US ---
EXAMINATION TYPE: US OB limited DATE OF EXAM: 01/29/2017 2:47 PM COMPARISON: NONE CLINICAL HISTORY: rupture of membranes at 19 weeks. EXAM PERFORMED: Transabdominal (TA) GESTATIONAL AGE / DATING Physician Established: (19 weeks/5 days) EDC: 06/20/17 No growth performed on today?s study per ordering physician SURVEY PLACENTA: Anterior PREVIA: No Previa XIN: 7.2 cm Oligohydramnios, CERVICAL LENGTH (transabdominal: norm > 3.0cm): 3.7 cm Ultrasound evidence of cervical incompetence? no (Tech?if abnormal transabdominally?image transvaginally to substantiate abnormality.) PRESENTATION: Breech flap of possible placenta moving within amniotic fluid, technologist unable to positively connect t his area to placenta, Dr Earl aware. HEART RATE: 144 bpm RHYTHM: Normal Oligohydramnios, nurse aware, Dr. Earl aware. IMPRESSION: 1. Oligohydramnios. 2. Single intrauterine gestation estimated at 19 weeks 5 days gestation based on the physician quinn heredia EDC. Cardiac activity measures 144 bpm.
[2017-01-29 16:55] LABS: Appearance,Urine Clear (Clear); Bilirubin,Urine Negative (Negative); Glucose,Urine (UA) Negative (Negative); Ketones,Urine Trace (Negative); Leukocyte Esterase,Urine Negative (Negative); Nitrite,Urine Negative (Negative); PH, Urine 7.5 (5.0-8.0); Protein,Urine Negative (Negative); Specific Gravity,Urine 1.006 (1.001-1.035); UA Billing (MACRO vs. MICRO) CHEM; Urobilinogen,Urine <2.0 mg/dL (<2.0)
[2017-01-29 16:56] VITALS: BMI 34.4
--- NOTE | 2017-01-30 08:57 | P.PN ---
Subjective Principal diagnosis: 19+ weeks, spontaneous rupture of membranes The patient reports minimal cramping though it is present. She does report ongoing leaking of fluid which has been fairly continuous. There is movement. She denies fever. Objective - Vital Signs Vital signs: Vital Signs Temp 98.4 F 01/30/17 00:00 Pulse 74 01/30/17 00:00 Resp 16 01/30/17 00:00 BP 87/53 01/30/17 00:00 Pulse Ox 98 01/29/17 12:30 Intake & Output 01/29/17 01/30/17 01/30/17 18:59 06:59 18:59 Output Total 800 Balance -800 Weight 91.172 kg Output: Urine 800 - Exam The patient is a well-developed, well-nourished white female in emotional but not physical distress given the situation. Her heart has a regular rhythm and rate without murmur. Her lungs are clear to auscultation bilaterally in all langley. Her abdomen is gravid, nondistended, has normal active bowel sounds, is soft, nontender, and without any palpable masses aside from uterine fundus at or just below the umbilicus. The uterus is soft and nontender to palpation. Her extremities are without any cyanosis, clubbing, or edema and are nontender to palpation bilaterally. Digital cervical examination is deferred at this time. - Labs CBC & Chem 7: 01/29/17 14:05 Labs: Abnormal Lab Results - Last 24 Hours (Table) 01/29/17 Range/Units 16:30 Urine Ketones Trace H (Negative) Assessment and Plan (1) 19 weeks gestation of Status: Acute (2) premature rupture of membranes Status: Acute Plan: The patient will continue to be managed with conservative inpatient management. Should she remained stable after 3-4 days, there would be a consideration for outpatient management. The risk for labor is greatest during the first 72 hours. I have had a gabriela discussion with the patient regarding the possible poor outcome. We will continue to recheck on amniotic fluid occasionally. I will check a CBC tomorrow and continue to follow vital signs closely. The gravity of the case as well as long-term management has been discussed with the patient.
[2017-01-30] MEDS: SENNOSIDES-DOCUSATE SODIUM 1 EACH TAB PO SCH ×2 (09:13→23:40)
[2017-01-30] MEDS: PRENATAL VIT-IRON-FOLIC ACID 1 EACH CAP PO SCH (19:15)
[2017-01-31 08:03] LABS: Basophils % (A) 0 %; CH 30.7; CHCM 34.7; Eosinophils # (A) 0.1 k/uL (0-0.7); Eosinophils % (A) 1 %; HCT 33.5 % (34.0-46.0); HDW 3.33; HGB 11.3 gm/dL (11.4-16.0); Luc # (Auto) 0.08; Luc % (Auto) 1; Lymphocytes # (A) 1.7 k/uL (1.0-4.8); Lymphocytes % (A) 18 %; MCHC 33.7 g/dL (31.0-37.0); MCV 89.2 fL (80.0-100.0); Mean Platelet Volume 6.6; Monocytes # (A) 0.2 k/uL (0-1.0); Monocytes % (A) 3 %; Neutrophils # (A) 7.4 k/uL (1.3-7.7); Neutrophils % (A) 78 %; RBC 3.76 m/uL (3.80-5.40); RDW 15.6 % (11.5-15.5); WBC 9.5 k/uL (3.8-10.6); WBC (Perox) 9.86
--- NOTE | 2017-01-31 09:57 | P.PN ---
Subjective Principal diagnosis: 19+ weeks, spontaneous rupture of membranes The patient reports perhaps slightly increased cramping today though she may be focusing on this. She continues report leaking of fluid, particularly one more upright. She denies fever and does report movement. She has no other complaints at this time. Objective - Vital Signs Vital signs: Vital Signs Temp 98.2 F 01/31/17 04:00 Pulse 81 01/30/17 23:21 Resp 16 01/30/17 23:21 BP 83/46 01/30/17 23:21 Pulse Ox 98 01/29/17 12:30 Intake & Output 01/30/17 01/31/17 01/31/17 18:59 06:59 18:59 Intake Total 1000 500 Output Total 100 Balance 900 500 Intake: IV 1000 Lactated Ringers 1,000 ml 1000 @ 20 mls/hr IV .Q24H YOKO Rx#:[id number] Intake, IV Titration 200 Amount Lactated Ringers 1,000 ml 200 @ 20 mls/hr IV .Q24H YOKO Rx#:[id number] Oral 300 Output: Urine 100 Other: # Voids 1 - Exam In general, this is a well-developed, mildly obese white female in no acute distress. Her heart has a regular rhythm and rate without murmur. Her lungs are clear to auscultation bilaterally in all langley. Her abdomen is gravid, nondistended, has normal active bowel sounds, is soft, nontender, with the uterine fundus palpable around the umbilicus. The uterus itself is soft and nontender. Her extremities are without any cyanosis, clubbing, or edema and are nontender to palpation bilaterally. - Labs CBC & Chem 7: 01/31/17 07:34 Labs: Abnormal Lab Results - Last 24 Hours (Table) 01/31/17 Range/Units 07:34 RBC 3.76 L (3.80-5.40) m/uL Hgb 11.3 L (11.4-16.0) gm/dL Hct 33.5 L (34.0-46.0) % RDW 15.6 H (11.5-15.5) % Assessment and Plan (1) 19 weeks gestation of Status: Acute (2) premature rupture of membranes Status: Acute Plan: The patient will continue to have close maternal surveillance with auscultation of heart tones once a shift. Her white count has remained stable since admission and she denies any evidence of actively impending labor. I will likely contact maternal medicine for guidance regarding potential outpatient management until viability is approached. She will likely need to have weekly monitoring of her fluid levels and otherwise remain at relative bedrest with bathroom privileges. I will allow her to take shower and her IV has been capped. Possible discharge home tomorrow pending telephone discussion with maternal medicine and no evidence of labor.
[2017-01-31] MEDS: SENNOSIDES-DOCUSATE SODIUM 1 EACH TAB PO SCH ×2 (16:24→20:00)
[2017-01-31] MEDS: PRENATAL VIT-IRON-FOLIC ACID 1 EACH CAP PO SCH (18:27)
[2017-01-31] MEDS: LACTATED RINGERS 1,000 ML IV SCH ×2 (20:44→20:45)
[2017-02-01] MEDS: SENNOSIDES-DOCUSATE SODIUM 1 EACH TAB PO SCH ×2 (07:51→20:56)
[2017-02-01 08:14] LABS: Appearance,Urine Cloudy (Clear); Bacteria,Urine Occasional /hpf; Bilirubin,Urine Negative (Negative); Glucose,Urine (UA) Negative (Negative); Ketones,Urine Negative (Negative); Leukocyte Esterase,Urine Large (Negative); Mucus,Urine Many /hpf; Nitrite,Urine Positive (Negative); Particle Count 30506; Protein,Urine 1+ (Negative); RBC,Urine 43 /hpf (0-5); Specific Gravity,Urine 1.024 (1.001-1.035); Squamous Epithelial Cell,Urine 2 /hpf (0-4); UA Billing (MACRO vs. MICRO) MICRO; WBC,Urine 54 /hpf (0-5)
--- NOTE | 2017-02-01 08:49 | P.PN ---
Subjective Principal diagnosis: 19+ weeks, spontaneous rupture of membranes The patient reports no significant changes since yesterday. She has developed some dysuria and frequency over the last the 24 hours. The abdominal cramping is no worse and she reports normal movement. She does continue to leak. Objective - Vital Signs Vital signs: Vital Signs Temp 98.6 F 02/01/17 07:58 Pulse 81 02/01/17 07:58 Resp 16 02/01/17 07:58 BP 106/61 02/01/17 07:58 Pulse Ox 97 02/01/17 07:58 Intake & Output 01/31/17 02/01/17 02/01/17 18:59 06:59 18:59 Output Total 700 Balance -700 Output: Urine 700 - Exam In general, this is a well-developed, well-nourished white female in no acute distress. Her abdomen is nondistended, soft, nontender, without any palpable masses aside from uterine fundus around the umbilicus which is also nontender. Her extremities without any cyanosis, clubbing, or edema and are nontender to palpation bilaterally. - Labs CBC & Chem 7: 01/31/17 07:34 Labs: Abnormal Lab Results - Last 24 Hours (Table) 02/01/17 Range/Units 07:48 Urine Appearance Cloudy H (Clear) Urine Protein 1+ H (Negative) Urine Blood Moderate H (Negative) Urine Nitrite Positive H (Negative) Ur Leukocyte Esterase Large H (Negative) Urine RBC 43 H (0-5) /hpf Urine WBC 54 H (0-5) /hpf Urine Bacteria Occasional H (None) /hpf Urine Mucus Many H (None) /hpf Assessment and Plan (1) 19 weeks gestation of Status: Acute (2) premature rupture of membranes Status: Acute Plan: Urinalysis is consistent with a urinary tract infection. As result, she will be started on Bactrim DS twice daily for 5 days total. I did discuss her case with maternal medicine out [facility] yesterday. They are in agreement that there is a placed for outpatient management until viability. In the meantime, she will be followed in hospital for another 24 hours for stability. She will likely be discharged home tomorrow if she remains stable to follow-up in the office once weekly for both an assessment of fluid with the ultrasound as well as a weekly complete blood count to check the white count. She will undergo maternal medicine consultation for further planning and likely be hospitalized at or near viability just short of 24 weeks of gestation at which time aggressive management will begin. She will otherwise continue at this time with bed rest with bathroom privileges. Have encouraged aggressive oral hydration.
[2017-02-01] MEDS: SULFAMETHOX-TMP 800-160MG 1 EACH TAB PO SCH ×2 (09:37→20:56)
[2017-02-01] MEDS: PRENATAL VIT-IRON-FOLIC ACID 1 EACH CAP PO SCH (12:45)
[2017-02-02] MEDS: SULFAMETHOX-TMP 800-160MG 1 EACH TAB PO SCH ×2 (08:03→21:02)
--- NOTE | 2017-02-02 08:49 | P.DS ---
Providers Date of admission: 01/29/17 15:23 Expected date of discharge: 02/02/17 Attending physician: Susanne Godfrey Primary care physician: Stated None - Discharge Diagnosis(es) (1) 19 weeks gestation of Current Visit: Yes Status: Acute (2) premature rupture of membranes Current Visit: Yes Status: Acute Hospital Course: The patient is a 31-year-old 3 para 09/11/2004 admitted at 19-5/7 weeks by good dating parameters. She is admitted with documented premature spontaneous rupture of membranes with no evidence of labor. Her has been complicated by significant nausea and vomiting early in the and then, subsequently, a large subchorionic bleed which had resolved by her 19 week anatomy ultrasound. The 19 week anatomy scan did M and straight a 2 vessel cord but no other significant findings. She denies any other etiologic factors and has no risk factors for rupture of membranes. On labor and delivery, she remained afebrile and with no evidence of labor. Her white counts remained stable throughout her entire hospitalization. The case was discussed with maternal medicine at [facility] who agrees that, prior to viability, outpatient management is reasonable. She therefore was discharged home to follow-up in the office next week for a repeat fluid evaluation as well as a Doppler heart tones and a repeat CBC. She was to call for any significantly increased cramping or bleeding or signs and symptoms of labor. She certainly was additionally to call for any fever or increasing pain. She was treated remained at essential bed rest while at home with bathroom privileges. The long term care phlebotomist outcomes have been fairly thoroughly discussed but she will likely be sent for maternal medicine consultation as an outpatient. Should she wish to be aggressive in attempting to rescue the , she will likely be admitted as an inpatient with aggressive steroid and antibiotic management at just shy of 24 weeks. She understood all the was discussed with her and agrees with the plan as it has been outlined and understands the very guarded disposition with the current diagnoses. While hospitalized, she was discovered to have a bladder infection and had a urine culture sent. She was started on Bactrim DS twice daily plan for total of 5 days. She was provided with a prescription for the remainder of her 5 days of Bactrim. She is otherwise to continue to use vitamins and over-the- counter analgesic pain medications as necessary. Procedures: #1. IV hydration #2. Serial CBC #3. Obstetrical ultrasound #4. Observation Patient Condition at Discharge: Stable Plan - Discharge Summary Discharge Medication List Pnv No.95/Ferrous Fum/Folic AC [ Vitamins Tablet] 1 tab PO DAILY [History] Follow up Appointment(s)/Referral(s): Roverto Gomez MD [STAFF PHYSICIAN] - 1 Week Discharge Disposition: HOME SELF-CARE
[2017-02-02 09:21] LABS: Basophils % (A) 0 %; CH 30.7; CHCM 34.7; Eosinophils # (A) 0.1 k/uL (0-0.7); Eosinophils % (A) 1 %; HCT 35.4 % (34.0-46.0); HDW 3.35; HGB 12.2 gm/dL (11.4-16.0); Luc # (Auto) 0.05; Luc % (Auto) 1; Lymphocytes # (A) 1.4 k/uL (1.0-4.8); Lymphocytes % (A) 14 %; MCH 30.6 pg (25.0-35.0); MCHC 34.3 g/dL (31.0-37.0); MCV 89.1 fL (80.0-100.0); Mean Platelet Volume 7.1; Monocytes # (A) 0.3 k/uL (0-1.0); Monocytes % (A) 3 %; Neutrophils # (A) 8.3 k/uL (1.3-7.7); Neutrophils % (A) 82 %; RBC 3.97 m/uL (3.80-5.40); RDW 15.7 % (11.5-15.5); WBC 10.2 k/uL (3.8-10.6); WBC (Perox) 10.61
[2017-02-02] MEDS: PRENATAL VIT-IRON-FOLIC ACID 1 EACH CAP PO SCH (15:39)
[2017-02-02] MEDS: SENNOSIDES-DOCUSATE SODIUM 1 EACH TAB PO SCH (21:02)
[2017-02-03] MEDS: SENNOSIDES-DOCUSATE SODIUM 1 EACH TAB PO SCH ×2 (02:05→12:20)
[2017-02-03] MEDS: SULFAMETHOX-TMP 800-160MG 1 EACH TAB PO SCH (08:39)
[2017-02-03 09:02] VITALS: RESP 18
--- NOTE | 2017-02-03 10:00 | P.PN ---
Subjective Principal diagnosis: 19+ weeks, spontaneous rupture of membranes The patient remained in the hospital rather than being discharged yesterday secondary to some minimal spotting noted when at toilet. She continues to have some mild suprapubic cramping that has not increased in nature. She continues to feel activity as well as ongoing leaking. She denies any fever, abdominal pain, or other more concerning findings. Objective - Vital Signs Vital signs: Vital Signs Temp 98.2 F 02/03/17 09:01 Pulse 72 02/03/17 09:01 Resp 18 02/03/17 09:01 BP 95/48 02/03/17 09:01 Pulse Ox 97 02/03/17 04:39 Intake & Output 02/02/17 02/03/17 02/03/17 18:59 06:59 18:59 Output Total 350 Balance -350 Output: Urine 350 Other: # Voids 1 - Exam In general, this is a well-developed, well-nourished white female in no acute distress. Her abdomen is nondistended, gravid, has normal active bowel sounds, soft, nontender, and without any palpable masses aside from uterine fundus just above the umbilicus. The uterus itself is soft and nontender. Her extremities without any cyanosis, clubbing, or edema and are nontender to palpation bilaterally. Digital cervical examination is deferred today though was performed yesterday which time her cervix was reportedly closed and thick. - Labs CBC & Chem 7: 02/02/17 08:58 Assessment and Plan (1) 19 weeks gestation of Status: Acute (2) premature rupture of membranes Status: Acute Plan: We will recheck an ultrasound today to attempt to look for a source for bleeding such as retroplacental clot or anything else that would make discharge home potentially more dangerous. Additionally we will reexamine the estimated fluid volume. Should these findings be non-concerning as expected, she will be discharged home today to follow-up in the office early next week for repeat CBC and ultrasound evaluation of fluid. She will then also undergo formal maternal medicine consultation in the outpatient setting either later in the week or the beginning of the following week. The plan has been outlined in detail with the patient. She has understood it and agreed to proceed. At this time, further disposition is pending the outcome of the ultrasound findings.
--- NOTE | 2017-02-03 10:52 | US ---
EXAMINATION TYPE: US OB limited DATE OF EXAM: 02/03/2017 10:36 AM COMPARISON: US CLINICAL HISTORY: XIN and check for source of bleeding. PROM, spotting x 1 day EXAM PERFORMED: Transabdominal (TA) GESTATIONAL AGE / DATING Physician Established: (20 weeks/3 days) EDC: 06/20/2017 No growth performed on today?s study per ordering physician SURVEY PLACENTA: Fundal PREVIA: No Previa Ultrasound evidence of abruption? None seen at this time XIN: 6.3 cm Oligohydraminos Ultrasound evidence of premature rupture of membranes? yes CERVICAL LENGTH (transabdominal: norm > 3.0cm): 3.6 cm Ultrasound evidence of cervical incompetence? no PRESENTATION: Breech HEART RATE: 160 bpm RHYTHM: Normal IMPRESSION: Oligohydramnios. Breech presentation. Viable intrauterine . Limited exam.
[2017-02-03] MEDS: PRENATAL VIT-IRON-FOLIC ACID 1 EACH CAP PO SCH (12:20)
[2017-02-03 17:52] VITALS: BP 104/58; PULSE 71; TEMP 98.8
== END 2017-02-03 17:44 | disposition home or self-care (01) | DRG 782 ==
LOC: FBPOP 12:17 → 4FBP 15:23
PROVIDERS: ADMIT Obstetrics & Gynecology; ATTEND Obstetrics & Gynecology
DX: O42.912 Preterm premature rupture of membranes, unspecified as to length of time between rupture and onset of labor, second trimester (principal); O32.1XX0 Maternal care for breech presentation, not applicable or unspecified; Z3A.19 19 weeks gestation of pregnancy
CPT/HCPCS: 76815; 81001; 81003; 85025; 86850; 86900; 86901; 99213

== ENCOUNTER 2017-02-06 08:22 | Outpatient (CLI) | payer OTHER | END 2017-02-06 09:19 | disposition home or self-care (01) | LOC: FBPOP 08:22 | PROVIDERS: ATTEND Obstetrics & Gynecology | DX: O26.92 Pregnancy related conditions, unspecified, second trimester (principal); Z3A.20 20 weeks gestation of pregnancy | CPT/HCPCS: 99213 ==

== ENCOUNTER → 2018-12-12 | Outpatient (CLI) | payer OTHER ==
--- NOTE | 2018-12-12 11:21 | MM ---
Reason for exam: screening (asymptomatic). Baseline mammogram. History: Family history of breast cancer in maternal grandmother at age 58 and breast cancer in paternal grandmother at age 60. Taking hormonal contraceptives beginning at age 14. Physical Findings: Nurse did not find any significant physical abnormalities on exam. MG 3D Screening Mammo W/Cad Bilateral CC and MLO view(s) were taken. There are scattered fibroglandular densities. No significant findings. These results were verbally communicated with the patient and result sheet given to the patient on 12/12/18. ASSESSMENT: Benign, BI-RAD 2 RECOMMENDATION: Routine screening mammogram of both breasts at age 38.
== END ==
LOC: RADMAMWWP 10:26
PROVIDERS: ATTEND Family Medicine
DX: Z12.31 Encounter for screening mammogram for malignant neoplasm of breast (principal); Z80.3 Family history of malignant neoplasm of breast
CPT/HCPCS: 77063; 77067

== ENCOUNTER → 2019-07-05 | Day surgery (SDC) | payer OTHER ==
[2019-07-03 11:43] VITALS: BMI 30.9
[~2019-07-05] MED LIST: LACTATED RINGERS 1,000 ML IV ONE; LACTATED RINGERS 1,000 ML IV SCH; LIDOCAINE 1% 20 ML VIAL (10MG/ML) FOR IV START INTRADERMA PRN; LIDOCAINE 1% INJ 10MG/ML (20 ML MDV) ONE; PROPOFOL 10 MG/ML 20 ML VIAL IV ONE
[2019-07-05 09:50] VITALS: RESP 16; TEMP 98
--- NOTE | 2019-07-05 10:10 | P.GSHP ---
History of Present Illness H&P Date: 07/05/19 Chief Complaint: Rectal bleeding 33-year-old female known to our service. 10-12 years ago patient had rectal bleeding and was found to have what we believed to be an anal fissure. Lately over the last 2-3 months started having rectal bleeding again with painful bowel movement. No family history of colon cancer. No change in bowel habits. Past Medical History Past Medical History: No Reported History Additional Past Medical History / Comment(s): bleeding with stools History of Any Multi-Drug Resistant Organisms: None Reported Past Surgical History: Section, Cholecystectomy, Tonsillectomy Additional Past Surgical History / Comment(s): c section x2 Past Anesthesia/Blood Transfusion Reactions: No Reported Reaction, Motion Sickness Smoking Status: Never smoker - Past Family History Mother Family Medical History: No Reported History Father Family Medical History: No Reported History Additional Family Medical History / Comment(s): heart problems but pt unsure what type Medications and Allergies Home Medications Medication Instructions Recorded Confirmed Type Desog-E.estradiol/E.estradiol 1 each PO QAM 07/03/19 07/05/19 History [Azurette 28 Day Tablet] Desvenlafaxine Succinate [Pristiq] 50 mg PO QAM 07/03/19 07/05/19 History Dextroamphetamine/Amphetamine 20 mg PO DAILY 07/03/19 07/05/19 History [Adderall] Allergies Allergy/AdvReac Type Severity Reaction Status Date / Time No Known Allergies Allergy Verified 07/05/19 09:52 Surgical - Exam Vital Signs Temp Pulse Resp BP Pulse Ox 98.0 F 80 16 125/84 99 07/05/19 09:46 07/05/19 09:46 07/05/19 09:46 07/05/19 09:46 07/05/19 09:46 Physical exam: General: Well-developed, well-nourished HEENT: Normocephalic, sclerae nonicteric Abdomen: Nontender, nondistended Extremities: No edema Neuro: Alert and oriented Assessment and Plan (1) Rectal bleeding Narrative/Plan: Will proceed with colonoscopy at this time. Current Visit: Yes Status: Acute Code(s): K62.5 - HEMORRHAGE OF ANUS AND RECTUM SNOMED Code(s): 48804941
--- NOTE | 2019-07-05 10:25 | P.PCN ---
Date of Procedure: 07/05/19 Procedure(s) Performed: PREOPERATIVE DIAGNOSIS: Rectal bleeding POSTOPERATIVE DIAGNOSIS: Possible small anterior anal fissure PROCEDURE: Colonoscopy ANESTHESIA: MAC SURGEON: Rolando Gloria M.D. SPECIMENS: None ENDOSCOPIC PROCEDURE: The patient was placed on the endoscopy table in the left decubitus position. The Olympus colonoscope was inserted into the anus and passed under direct visualization to the base of the cecum. The appendiceal orifice was visualized. From that point the scope was slowly withdrawn inspecting all surfaces carefully. There were no neoplastic inflammatory or polypoid lesions throughout the cecum, ascending, transverse, descending, sigmoid and rectum. There was no visible diverticulosis noted. Retroflexion of the anus was normal. Digital rectal examination was normal. Careful examination of the anus revealed a possible small acute fissure anteriorly. No other abnormalities were identified. The patient was taken to the recovery room in stable condition per anesthesia guidelines. RECOMMENDATIONS: Will empirically start nitroglycerin ointment. Follow-up if sy mptoms persist.
[2019-07-05 10:47] VITALS: BP 105/72; PULSE 69
== END ==
LOC: ORWHC2ENDO 09:23
PROVIDERS: ATTEND Surgery
DX: K62.5 Hemorrhage of anus and rectum (principal); F32.9 Major depressive disorder, single episode, unspecified; Z90.49 Acquired absence of other specified parts of digestive tract; Z90.89 Acquired absence of other organs; Z82.49 Family history of ischemic heart disease and other diseases of the circulatory system; Z79.3 Long term (current) use of hormonal contraceptives; Z79.899 Other long term (current) drug therapy
CPT/HCPCS: 81025; 45378; J2001; J2704

== ENCOUNTER → 2023-03-29 | Outpatient (CLI) | payer OTHER ==
--- NOTE | 2023-03-30 08:14 | MM ---
Reason for Exam: Screening (asymptomatic). Last mammogram was performed 4 year(s) and 3 month(s) ago. Patient History: Menarche at age 13. First Full-Term at age 21. Currently using Hormonal Contraceptives, starting at age 14. Paternal grandmother had breast cancer, age 60. Maternal grandmother had breast cancer, age 58. Risk Values: Paula 5 year model risk: 0.4%. NCI Lifetime model risk: 8.3%. Prior Study Comparison: 12/12/2018 Bilateral Screening Mammogram, [facility]. Tissue Density: There are scattered fibroglandular densities. Findings: Analyzed By CAD. No suspicious group of microcalcifications within either breast. There is a 4 mm ovoid asymmetry within the lateral right breast at middle depth only on the cc view. Additional asymmetry identified within the medial aspect of the left breast only on the CC view at middle depth. Overall Assessment: Incomplete: need additional imaging evaluation, BI-RAD 0 Management: Diagnostic Mammogram of both breasts. A clinical breast exam by your physician is recommended on an annual basis and results should be correlated with mammographic findings. [facility] will attempt to contact patient to return for supplemental views and ultrasound if indicated. Note on Paula scores and lifetime risk: 1. A Paula score greater than 3% is considered moderate risk. If this is the case, consider specialist referral to assess eligibility for a risk reducing agent. If overall lifetime risk for the development of breast cancer is 20% or higher, the patient may qualify for future screening with alternating mammogram and breast MRI. Electronically signed and approved by: Juan Chicas D.O.
== END | disposition home or self-care (01) ==
LOC: RADMAMWWP 16:57
PROVIDERS: ATTEND Family Medicine
DX: Z12.31 Encounter for screening mammogram for malignant neoplasm of breast (principal); Z80.3 Family history of malignant neoplasm of breast
CPT/HCPCS: 77063; 77067

== ENCOUNTER → 2024-02-22 | Outpatient (CLI) | payer OTHER ==
--- NOTE | 2024-02-28 12:12 | MM ---
Reason for Exam: Follow-up at short interval from prior study. Last screening mammogram was performed 11 month(s) ago. Patient History: Menarche at age 13. First Full-Term at age 21. Premenopausal. Patient has history of breast feeding. Hormonal Contraceptives, starting at age 14. Paternal grandmother had breast cancer, age 60. Maternal grandmother had breast cancer, age 58. Paternal cousin had breast cancer, age 38. Paternal cousin had breast cancer, age 40. Cousin tested for BRCA2 outcome was positive. Cousin tested for BRCA2 outcome was positive. Risk Values: Paula 5 year model risk: 0.5%. NCI Lifetime model risk: 8.3%. Tissue Density: There are scattered areas of fibroglandular density. Findings: Analyzed By CAD. Stable asymmetric density lower left breast. No evidence for distortion. No suspicious calcifications. Overall Assessment: Benign, BI-RAD 2 Management: Screening Mammogram of both breasts in 1 year. . Results were given to the patient verbally at the time of exam. Patient should continue monthly self-breast exams. A clinical breast exam by your physician is recommended on an annual basis. This exam should not preclude additional follow-up of suspicious palpable abnormalities. Note on Paula scores and lifetime risk: 1. A Paula score greater than 3% is considered moderate risk. If this is the case, consider specialist referral to assess eligibility for a risk reducing agent. 2. If overall lifetime risk for the development of breast cancer is 20% or higher, the patient may qualify for future screening with alternating mammogram and breast MRI. Electronically signed and approved by: Leonard Alvarenga M.D. Radiologis
== END | disposition home or self-care (01) ==
LOC: RADMAMWWP 13:19
PROVIDERS: ATTEND Family Medicine
DX: R92.323 Mammographic fibroglandular density, bilateral breasts (principal); N64.59 Other signs and symptoms in breast
CPT/HCPCS: 77066; 76642; G0279; 77062